=== PATIENT | male | born 1970 ===

== ENCOUNTER 2020-05-05 12:34 | Emergency (ER) | payer BC ==
[2020-05-05] MEDS ORDERED: DIPHtheria,PERTUSSIS(ACELL),TETANUS VACCINE/PF 0.5 ML VIAL IM ONE ×2 (13:28→18:46)
--- NOTE | 2020-05-05 13:29 | Event Note ---
ED Screening Note Date of service: 05/05/20 Time: 13:28 ED Screening Note: Patient presents with laceration to his left wrist Patient speaks little Czech Wound is gaping with pulsating bleeding Patient states he cut it with a knife This initial assessment/diagnostic orders/clinical plan/treatment(s) is/are subject to change based on patients health status, clinical progression and re- assessment by fellow clinical providers in the ED. Further treatment and workup at subsequent clinical providers discretion. Patient/guardian urged not to elope from the ED as their condition may be serious if not clinically assessed and managed. Initial orders include: boostrix further eval
[2020-05-05] MEDS ORDERED: cephALEXin 500 MG CAP PO ONE (19:42)
[2020-05-05] MEDS ORDERED: IBUPROFEN 800 MG TAB PO ONE (19:42)
[2020-05-05] MEDS ORDERED: LIDOCAINE (1%) 10 MG/1 ML VIAL 20 ML MDV INFILTRATI ONE (19:42)
--- NOTE | 2020-05-05 19:47 | Emergency Department Report ---
- General Chief Complaint: Wound/Laceration Stated Complaint: LEFT ARM CUT Source: patient Mode of arrival: Ambulatory Limitations: Language Barrier - History of Present Illness Initial Comments: Patient is a 49-year-old male with no past medical history presents to the ED with complaint of acute onset left forearm bleeding laceration after he accidentally cut his left forearm when cutting some meat at home about 6 hours ago. Patient states that he has had a lot of bleeding from the wound even after applying pressure and dressing it. Patient states that he is not up-to-date with his tetanus vaccinations. Patient denies numbness and tingling or weakness of left arm or left forearm, dizziness, nausea, vomiting, fall, syncope or chest pain or shortness of breath. -: Sudden, hour(s) (6) Location: other (left forearm) Extremity Location: Left: Forearm (left forearm bleeding laceration) Place: home Context: accidental, sharp object use Associated Symptoms: pain. denies: loss of feeling/numbness, suspect foreign body present, unable to move injured part, weakness followed by dizziness, nausea/vomiting, fever, other - Related Data Previous Rx's Medication Instructions Recorded Last Taken Type Ibuprofen [Motrin] 800 mg PO Q8HR PRN #24 tablet 05/05/20 Unknown Rx cephALEXin [Keflex] 500 mg PO Q8HR #30 cap 05/05/20 Unknown Rx Allergies Allergy/AdvReac Type Severity Reaction Status Date / Time No Known Allergies Allergy Unverified 05/05/20 12:54 ED Review of Systems ROS: Stated complaint: LEFT ARM CUT Other details as noted in HPI Constitutional: denies: chills, fever Eyes: denies: eye pain, eye discharge, vision change ENT: denies: ear pain, throat pain Respiratory: denies: cough, shortness of breath, wheezing Cardiovascular: denies: chest pain, palpitations Endocrine: no symptoms reported Gastrointestinal: denies: abdominal pain, nausea, diarrhea Genitourinary: denies: urgency, dysuria Musculoskeletal: arthralgia (left forearm pain due to a bleeding laceration). denies: back pain, joint swelling Skin: other (Bleeding left forearm laceration with pain). denies: rash, lesions Neurological: denies: headache, weakness, paresthesias Psychiatric: denies: anxiety, depression Hematological/Lymphatic: denies: easy bleeding, easy bruising ED Past Medical Hx - Past Medical History Previous Medical History?: No - Surgical History Past Surgical History?: No - Social History Smoking Status: Never Smoker Substance Use Type: None - Medications Home Medications: Home Medications Medication Instructions Recorded Confirmed Last Taken Type Ibuprofen [Motrin] 800 mg PO Q8HR PRN #24 tablet 05/05/20 Unknown Rx cephALEXin [Keflex] 500 mg PO Q8HR #30 cap 05/05/20 Unknown Rx ED Physical Exam - General Limitations: Language Barrier General appearance: alert, in no apparent distress - Head Head exam: Present: atraumatic, normocephalic, normal inspection - Eye Eye exam: Present: normal appearance, PERRL, EOMI Pupils: Present: normal accommodation - ENT ENT exam: Present: normal orophraynx, mucous membranes moist, TM's normal bilaterally, normal external ear exam - Neck Neck exam: Present: normal inspection, full ROM - Respiratory Respiratory exam: Present: normal lung sounds bilaterally. Absent: respiratory distress, wheezes, rales, stridor, chest wall tenderness, accessory muscle use, decreased breath sounds, prolonged expiratory - Cardiovascular Cardiovascular Exam: Present: regular rate, normal rhythm, normal heart sounds. Absent: systolic murmur, diastolic murmur, rubs, gallop - GI/Abdominal GI/Abdominal exam: Present: soft, normal bowel sounds. Absent: tenderness, guarding, rebound, hyperactive bowel sounds, hypoactive bowel sounds, organomegaly - Extremities Exam Extremities exam: Present: normal inspection, full ROM, tenderness (left forearm tenderness due to a bleeding 6 cm laceration), normal capillary refill - Back Exam Back exam: Present: normal inspection, full ROM. Absent: tenderness, CVA tenderness (R), CVA tenderness (L), muscle spasm, paraspinal tenderness, vertebral tenderness - Neurological Exam Neurological exam: Present: alert, oriented X3, CN II-XII intact, normal gait, reflexes normal - Psychiatric Psychiatric exam: Present: normal affect, normal mood - Skin Skin exam: Present: warm, dry, intact, normal color, other (Bleeding left forearm 6 cm laceration). Absent: rash ED Course Vital Signs 05/05/20 12:56 Temperature 98.2 F Pulse Rate 81 Respiratory 18 Rate Blood Pressure 150/102 O2 Sat by Pulse 99 Oximetry - Laceration /Wound Repair Left Distal Arm Wound Location: upper extremity (left forearm bleeding laceration) Wound's Depth, Shape: superficial, linear Wound Explored: contaminated Irrigated w/ Saline (ccs): 100 Betadine Prep?: Yes Anesthesia: 1% Lidocaine Volume Anesthetic (ccs): 5 Wound Debrided: extensive Wound Repaired With: sutures Suture Size/Type: 3:0, proline Number of Sutures: 13 Layer Closure?: No Sterile Dressing Applied?: Yes Progress: The patient tolerated the procedure well. The wound was then dressed appropriately and the patient discharged home on pain medications and prophylactic antibiotics. Patient was advised return to the ED immediately if symptoms get worse. Otherwise patient was advised to return to the ED or to his primary care physician in 12 to 14 days for suture removal. ED Medical Decision Making - Medical Decision Making This is a 49-year-old male with no past medical history presents to the ED with complaint of acute onset left forearm bleeding laceration after he accidentally cut his left forearm when cutting some meat at home about 6 hours ago. Patient states that he has had a lot of bleeding from the wound even after applying pressure and dressing it. Patient states that he is not up-to-date with his tetanus vaccinations. In the ED, patient is alert and oriented x3 and is not in distress. Patient was treated for pain in the ED. Patient also received booster tetanus vaccinations and prophylactic oral antibiotics in the ED. The left forearm bleeding laceration was cleaned thoroughly and sutured per protocol. Patient tolerated the procedure well. The wound was then dressed appropriately and the patient was discharged home on pain medications and prophylactic antibiotics, and was advised to return to the ED immediately if symptoms get worse. Patient was otherwise advised return to the ED or to his primary care physician in 12 to 14 days for suture removal. - Differential Diagnosis Forearm laceration; Puncture wound; tendon laceration Critical care attestation.: If time is entered above; I have spent that time in minutes in the direct care of this critically ill patient, excluding procedure time. ED Disposition Clinical Impression: Laceration of left forearm without complication Qualifiers: Encounter type: initial encounter Qualified Code(s): S51.812A - Laceration without foreign body of left forearm, initial encounter Disposition: TO HOME OR SELFCARE Is pt being admited?: No Does the pt Need Aspirin: No Condition: Stable Instructions: Suture Care (ED), Laceration (ED) Additional Instructions: [place] la medicacin con alimentos, wendi muchos lquidos y nany un seguimiento con wood mdico de atencin primaria en 7 a 10 miller para bennie reevaluacin. Regrese al servicio de urgencias de inmediato si los sntomas empeoran, especialmente si desarrolla dolor intenso e hinchazn alrededor de la herida, enrojecimiento, secrecin purulenta, fiebre y escalofros o nuseas y vmitos. De lo contrario, regrese al servicio de urgencias en 12 a 14 miller para retirar la sutura. Prescriptions: cephALEXin [Keflex] 500 mg PO Q8HR #30 cap Ibuprofen [Motrin] 800 mg PO Q8HR PRN #24 tablet PRN Reason: Pain , Severe (7-10) Referrals: [facility] [Provider Group] - 7-10 days Time of Disposition: 19:53 Print Language: FILIPINO
[2020-05-05 20:12] VITALS: BP 170/106
== END 2020-05-05 20:16 | disposition home or self-care (01) ==
LOC: ED 12:34
DX: S51.812A Laceration without foreign body of left forearm, initial encounter (principal); Z79.1 Long term (current) use of non-steroidal anti-inflammatories (NSAID); Z79.899 Other long term (current) drug therapy; W26.8XXA Contact with other sharp object(s), not elsewhere classified, initial encounter; Y93.89 Activity, other specified; Y92.89 Other specified places as the place of occurrence of the external cause; Y99.8 Other external cause status
CPT/HCPCS: 90471; 90715; 99282